=== PATIENT | female | born 1935 | race Caucasian/White ===

== ENCOUNTER 2024-05-16 14:02 | Observation (INO) | payer MEDICARE ==
--- NOTE | 2024-05-16 15:13 | ED ---
General Adult HPI - General Chief complaint: Fall Stated complaint: Fell headache Time Seen by Provider: 05/16/24 14:51 Source: patient, family Mode of arrival: wheelchair Limitations: altered mental status, physical limitation - History of Present Illness Initial comments: This is a pleasant 88-year-old female with no significant medical history presenting with her family today for generalized weakness. They state patient usually lives with them and has a history of dementia though is able to ambulate independently and care for self. Patient had a fall this morning at 5 AM, was heard by her family who came in to find her on the floor. Patient is not thought to have lost consciousness and did hit the back of her head against the edge of a counter. Afterward she was helped to her bedroom and went back to bed. She required assistance with ambulation twice more than this morning which is not normal for her. Then when family came to check on her again she continued still laying in the couch, in her pajamas when she would usually have dressed herself and then ready for the day. Patient has had a frequent cough since last night. Otherwise patient denies any pain. Family does not think she sustained any additional injuries. She is not on blood thinners. No history UTIs. Patient's brurqusq-qn-rip with whom she lives, was sick with a respiratory infection over the last week that they think may have been influenza. - Related Data Previous Rx's Medication Instructions Recorded Cefuroxime [Ceftin] 250 mg PO BID 3 Days #6 tab 05/17/24 Famotidine [Pepcid] 20 mg PO DAILY #7 tablet 05/17/24 Oseltamivir [Tamiflu] 30 mg PO Q12HR 3 Days #6 cap 05/17/24 Allergies Allergy/AdvReac Type Severity Reaction Status Date / Time No Known Allergies Allergy Verified 05/16/24 15:46 Review of Systems ROS Statement: Those systems with pertinent positive or pertinent negative responses have been documented in the HPI. ROS Other: All systems not noted in ROS Statement are negative. Past Medical History Additional Past Medical History / Comment(s): patient poor historian History of Any Multi-Drug Resistant Organisms: None Reported Past Psychological History: No Psychological Hx Reported Smoking Status: Never smoker Past Alcohol Use History: None Reported Past Drug Use History: None Reported - Past Family History Father Family Medical History: Unable to Obtain General Exam - General Exam Comments Initial Comments: PE: CONSTITUTIONAL: No apparent distress, chronically ill-appearing, nontoxic SKIN: Warm, dry, no jaundice, hives or petechiae, no visualized bruises or hematomas EYES: Pupils are equally round, extraocular movements intact without nystagmus, clear conjunctiva, non-icteric sclera HENT: Normocephalic, small palpable hematoma to the left CROS moist mucus membranes, oropharynx clear without exudates NECK: , Full range of motion, normal appearance, no midline spinal tenderness palpation, patient ranges her neck through full range of motion without midline pain or radiculopathy PULMONARY: Clear to auscultation without wheezes, rhonchi, or rales, normal excursion, no accessory muscle use and no stridor CARDIOVASCULAR: Regular rate, rhythm, normal S1 and S2. No appreciated murmurs, rubs or gallops. Strong radial pulses with intact distal perfusion. No lower extremity edema GASTROINTESTINAL: Soft, active bowel sounds throughout, non-tender, non- distended, no palpable masses, no rebound or guarding. No hepatosplenomegaly GENITOURINARY: MUSCULOSKELETAL: Extremities have no gross deformity, no edema, redness, or swelling. No calf swelling. Nontender to palpation throughout. NEUROLOGIC:_a/o x 1, GCS 14, normal mentation and speech. 3-5 strength in all 4 extremities otherwise moves all extremities x 4 without motor or sensory deficit PSYCHIATRIC:_normal mood and affect, thought process is pleasantly confused Limitations: altered mental status, physical limitation Course Vital Signs 05/16/24 05/16/24 05/16/24 14:07 16:19 18:34 Temperature 98.7 F 100.9 F H 99.1 F Pulse Rate 101 H 92 85 Pulse Rate [ Pulse Oximetery ] Respiratory 19 18 16 Rate Blood Pressure 152/80 150/96 134/78 Blood Pressure [Right Arm] O2 Sat by Pulse 93 L 97 96 Oximetry 05/16/24 05/16/24 20:00 21:03 Temperature 98.3 F 98.0 F Pulse Rate Pulse Rate [ 89 93 Pulse Oximetery ] Respiratory 16 17 Rate Blood Pressure Blood Pressure 112/65 134/68 [Right Arm] O2 Sat by Pulse 96 Oximetry - Reevaluation(s) Reevaluation #1: I was alerted by RN that patient does have a fever, temp 100.9 degrees. The patient was tachycardic on arrival and with fever meet SIRS criteria. With patient's increased coughing suspect respiratory source. Blood culture, lactic ordered. Rocephin azithromycin ordered. Tylenol. 05/16/24 16:26 Reevaluation #2: 05/16/24 16:46 Patient influenza A positive, as she has no other signs of other infection at this time will obtain blood culture however will hold off on antibiotics. EKG Findings - EKG Comments: EKG Findings:: Atrial fibrillation, rate 100 bpm, QT/QTc 320/379, normal axis, no ST elevations or depressions, no STEMI. Repeat EKG shows sinus rhythm with occasional PVCs, rate 85 bpm ND interval 177 ms QT/QTc 370/413 ms, normal axis Medical Decision Making - Medical Decision Making Was pt. sent in by a medical professional or institution (, PA, SLITTER CUT OFF OPERATOR, urgent care, hospital, or care home...) When possible be specific @ -No Did you speak to anyone other than the patient for history (EMS, parent, family, police, friend...)? What history was obtained from this source @ -Spoke with patient's family who assist in providing history-state patient does have a history of dementia however usually is able to ambulate and care for herself Did you review nursing and triage notes (agree or disagree)? Why? @ -I reviewed nursing and triage notes Were old charts reviewed (outside hosp., previous admission, EMS record, old EKG, old radiological studies, urgent care reports/EKG's, care home records)? Report findings @ -Medical records reviewed- no prior records for review Differential Diagnosis (chest pain, altered mental status, abdominal pain women, abdominal pain men, vaginal bleeding, weakness, fever, dyspnea, syncope, headache, dizziness, GI bleed, back pain, seizure, CVA, palpatations, mental health, musculoskeletal)? Differential Weakness: Hypoglycemia, shock, sepsis, hyponatremia, anemia, infection, ID, adverse medicine reaction, stroke this is not meant to be an all-inclusive list. EKG interpreted by me (3pts min.). @ -As above X-rays interpreted by me (1pt min.). @X-ray shows no cardiomegaly or gross consolidations, agree with radiologist rotation CT interpreted by me (1pt min.). @CT brain and C-spine were reviewed by myself, showed no evidence of hemorrhage which, skull fracture, malalignment or fracture on CT C-spine, agree with radiologist interpretation U/S interpreted by me (1pt. min.). @ -None done What testing was considered but not performed or refused? (CT, X-rays, U/S, labs)? Why? @ -None What meds were considered but not given or refused? Why? @ -None Did you discuss the management of the patient with other professionals (professionals i.e. , PA, SLITTER CUT OFF OPERATOR, lab, RT, psych nurse, manager social media, equipment inspector, teacher, navy airspace officer, correctional counselor/case manager)? Give summary @ -No Was smoking cessation discussed for >3mins.? @ -No Was critical care preformed (if so, how long)? @ -No Were there social determinants of health that impacted care today? How? (Homelessness, low income, unemployed, alcoholism, drug addiction, transportation, low edu. Level, literacy, decrease access to med. care, fci, rehab)? @ -No Was there de-escalation of care discussed even if they declined (Discuss DNR or withdrawal of care, Hospice)? @ -No What co-morbidities impacted this encounter? (DM, HTN, Smoking, COPD, CAD, Cancer, CVA, ARF, Chemo, Hep., AIDS, mental health diagnosis, sleep apnea, morbid obesity)? @Dementia Was patient admitted / discharged? Hospital course, mention meds given and route, prescriptions, significant lab abnormalities, going to OR and other pertinent info. @ Admission- This is an 88-year-old female presenting today for generalized weakness, fall, increased coughing. Patient initially seen and assessed in waiting room and given bed shortage in the emergency department, obtained patient's family's permission to obtain history in waiting room. They were a greeable. Exam shows small hematoma to the left posterior occiput, otherwise overall reassuring, generalized weakness, no other signs of injury, no midline spinal tenderness palpation. Discussed with patient's family plan for broad workup, CT brain C-spine, chest x-ray Cepheid testing anticipate admission as patient currently too weak for family to care for at home. They are agreeable plan of care. Patient influenza positive. Patient's fever and tachycardia likely secondary to influenza status s antibiotics and blood cultures were not ordered. Patient's initial EKGs appears to show atrial fibrillation, now that rate is slowed we will repeat. Patient has no history of this. Patient did hit her head with a palpable hematoma this morning so heparinization will be withheld. Case was discussed with Dr. Arciniega, kindly accepts patient for admission. Patient is starting become somewhat anxious so seroquel ordered, family ok'd. Of note EKG was repeated and showed normal sinus rhythm. Undiagnosed new problem with uncertain prognosis? @ -No Drug Therapy requiring intensive monitoring for toxicity (Heparin, Nitro, Insulin, Cardizem)? @ -No Were any procedures done? @ -No Diagnosis/symptom? @ Generalized weakness, influenza Acute, or Chronic, or Acute on Chronic? @ acute Uncomplicated (without systemic symptoms) or Complicated (systemic symptoms)? @ -Complicated Side effects of treatment? @ -No Exacerbation, Progression, or Severe Exacerbation? @ -No Poses a threat to life or bodily function? How? (Chest pain, USA, ID, pneumonia, PE, COPD, DKA, ARF, appy, cholecystitis, CVA, Diverticulitis, Homicidal, Suicidal, threat to staff... and all critical care pts) @ -No - Lab Data Result diagrams: 05/16/24 15:50 05/16/24 15:50 Lab Results 05/16/24 05/16/24 05/16/24 Range/Units 15:50 15:50 15:50 WBC 7.8 (3.8-10.6) k/uL RBC 4.95 (3.80-5.40) m/uL Hgb 13.8 (11.4-16.0) gm/dL Hct 43.0 (34.0-46.0) % MCV 86.9 (80.0-100.0) fL MCH 27.8 (25.0-35.0) pg MCHC 32.0 (31.0-37.0) g/dL RDW 15.5 (11.5-15.5) % Plt Count 316 (150-450) k/uL MPV 7.2 Neutrophils % 77 % Lymphocytes % 13 % Monocytes % 9 % Eosinophils % 1 % Basophils % 0 % Neutrophils # 6.0 (1.3-7.7) k/uL Lymphocytes # 1.0 (1.0-4.8) k/uL Monocytes # 0.7 (0-1.0) k/uL Eosinophils # 0.1 (0-0.7) k/uL Basophils # 0.0 (0-0.2) k/uL PT 11.0 (10.0-12.5) sec INR 1.0 (<1.2) APTT 25.0 (22.0-30.0) sec Sodium (137-145) mmol/L Potassium (3.5-5.1) mmol/L Chloride (98-107) mmol/L Carbon Dioxide (22-30) mmol/L Anion Gap mmol/L BUN (7-17) mg/dL Creatinine (0.52-1.04) mg/dL Est GFR (CKD-EPI)AfAm (>60 ml/min/1.73 sqM) Est GFR (CKD-EPI)NonAf (>60 ml/min/1.73 sqM) Glucose (74-99) mg/dL Calcium (8.4-10.2) mg/dL Ionized Calcium Abbe (4.5-5.3) mg/dL Total Bilirubin (0.2-1.3) mg/dL AST (14-36) U/L ALT (4-34) U/L Alkaline Phosphatase (38-126) U/L Troponin I (0.000-0.034) ng/mL NT-Pro-B Natriuret Pep pg/mL Total Protein (6.3-8.2) g/dL Albumin (3.5-5.0) g/dL TSH (0.465-4.680) mIU/L Urine Color Urine Appearance (Clear) Urine pH (5.0-8.0) Ur Specific [place] (1.001-1.035) Urine Protein (Negative) Urine Glucose (UA) (Negative) Urine Ketones (Negative) Urine Blood (Negative) Urine Nitrite (Negative) Urine Bilirubin (Negative) Urine Urobilinogen (<2.0) mg/dL Ur Leukocyte Esterase (Negative) Urine RBC (0-5) /hpf Urine WBC (0-5) /hpf Ur Squamous Epith Cells (0-4) /hpf Urine Bacteria (None) /hpf Hyaline Casts (0-2) /lpf Urine Mucus (None) /hpf Influenza Type A (PCR) Detected A (Not Detectd) Influenza Type B (PCR) Not Detected (Not Detectd) RSV (PCR) Not Detected (Not Detectd) SARS-CoV-2 (PCR) Not Detected (Not Detectd) 05/16/24 05/16/24 05/16/24 Range/Units 15:50 15:50 17:19 WBC (3.8-10.6) k/uL RBC (3.80-5.40) m/uL Hgb (11.4-16.0) gm/dL Hct (34.0-46.0) % MCV (80.0-100.0) fL MCH (25.0-35.0) pg MCHC (31.0-37.0) g/dL RDW (11.5-15.5) % Plt Count (150-450) k/uL MPV Neutrophils % % Lymphocytes % % Monocytes % % Eosinophils % % Basophils % % Neutrophils # (1.3-7.7) k/uL Lymphocytes # (1.0-4.8) k/uL Monocytes # (0-1.0) k/uL Eosinophils # (0-0.7) k/uL Basophils # (0-0.2) k/uL PT (10.0-12.5) sec INR (<1.2) APTT (22.0-30.0) sec Sodium 133 L (137-145) mmol/L Potassium 3.9 (3.5-5.1) mmol/L Chloride 98 (98-107) mmol/L Carbon Dioxide 24 (22-30) mmol/L Anion Gap 11 mmol/L BUN 15 (7-17) mg/dL Creatinine 0.69 (0.52-1.04) mg/dL Est GFR (CKD-EPI)AfAm >90 (>60 ml/min/1.73 sqM) Est GFR (CKD-EPI)NonAf 79 (>60 ml/min/1.73 sqM) Glucose 105 H (74-99) mg/dL Calcium 9.4 (8.4-10.2) mg/dL Ionized Calcium Abbe 4.8 (4.5-5.3) mg/dL Total Bilirubin 0.8 (0.2-1.3) mg/dL AST 27 (14-36) U/L ALT 11 (4-34) U/L Alkaline Phosphatase 88 (38-126) U/L Troponin I <0.012 (0.000-0.034) ng/mL NT-Pro-B Natriuret Pep 1940 pg/mL Total Protein 7.5 (6.3-8.2) g/dL Albumin 4.4 (3.5-5.0) g/dL TSH 2.790 (0.465-4.680) mIU/L Urine Color Light Yellow Urine Appearance Cloudy H (Clear) Urine pH 5.5 (5.0-8.0) Ur Specific [place] 1.016 (1.001-1.035) Urine Protein 1+ H (Negative) Urine Glucose (UA) Negative (Negative) Urine Ketones 1+ H (Negative) Urine Blood Small H (Negative) Urine Nitrite Positive H (Negative) Urine Bilirubin Negative (Negative) Urine Urobilinogen <2.0 (<2.0) mg/dL Ur Leukocyte Esterase Large H (Negative) Urine RBC 5 (0-5) /hpf Urine WBC >182 H (0-5) /hpf Ur Squamous Epith Cells 1 (0-4) /hpf Urine Bacteria Occasional H (None) /hpf Hyaline Casts 1 (0-2) /lpf Urine Mucus Rare H (None) /hpf Influenza Type A (PCR) (Not Detectd) Influenza Type B (PCR) (Not Detectd) RSV (PCR) (Not Detectd) SARS-CoV-2 (PCR) (Not Detectd) Disposition Clinical Impression: Generalized weakness, Influenza, Fall Disposition: ADMITTED IP TO THIS HOSP Condition: Stable
[2024-05-16 16:02] LABS: Basophils % (A) 0 %; Eosinophils # (A) 0.1 k/uL (0-0.7); Eosinophils % (A) 1 %; HGB 13.8 gm/dL (11.4-16.0); Lymphocytes % (A) 13 %; MCH 27.8 pg (25.0-35.0); MCV 86.9 fL (80.0-100.0); Mean Platelet Volume 7.2; Monocytes # (A) 0.7 k/uL (0-1.0); Monocytes % (A) 9 %; Neutrophils % (A) 77 %; Platelet Count 316 k/uL (150-450); RBC 4.95 m/uL (3.80-5.40); RDW 15.5 % (11.5-15.5); WBC 7.8 k/uL (3.8-10.6)
[2024-05-16] MEDS: SODIUM CHLORIDE 0.9% 500 ML 500 ML IV STA (16:02)
[2024-05-16 16:21] LABS: ALT 11 U/L (4-34); AST 27 U/L (14-36); African American GFR (CKD) >90 (>60 ml/min/1.73 sqM); Albumin 4.4 g/dL (3.5-5.0); Alkaline Phosphatase 88 U/L (38-126); Anion Gap 11 mmol/L; Blood Urea Nitrogen 15 mg/dL (7-17); Calcium 9.4 mg/dL (8.4-10.2); Carbon Dioxide 24 mmol/L (22-30); Chloride 98 mmol/L (98-107); Glucose 105 mg/dL (74-99); Non-African American GFR(CKD) 79 (>60 ml/min/1.73 sqM); Potassium 3.9 mmol/L (3.5-5.1); Sodium 133 mmol/L (137-145); Total Bilirubin 0.8 mg/dL (0.2-1.3); Total Protein 7.5 g/dL (6.3-8.2)
[2024-05-16 16:30] LABS: NT-Pro-B-Type Natriuretic Pept 1940 pg/mL
[2024-05-16 16:35] LABS: Influenza A Detected (Not Detectd); Influenza B Not Detected (Not Detectd); Ionized Calcium 4.8 mg/dL (4.5-5.3); RSV Not Detected (Not Detectd)
--- NOTE | 2024-05-16 16:42 | XR ---
EXAMINATION TYPE: XR chest 2V DATE OF EXAM: 05/16/2024 4:35 PM COMPARISON: None. CLINICAL INDICATION: Female, 88 years old with history of Weakness, cough, TECHNIQUE: Frontal and lateral views of the chest are obtained. FINDINGS: There is some chronic parenchymal change bilaterally felt present without suspicious focal air space opacity or pneumothorax seen. A small to tiny right pleural effusion is present. The card iac silhouette size is upper limits of normal. Scoliosis area is noted. IMPRESSION: No acute pulmonary infiltrate. [facility], , 05/16/2024 4:40 PM
[2024-05-16] MEDS: AZITHROMYCIN 500 MG in SODIUM CHLORIDE 0.9% 250 ML IVPB STA (16:47)
[2024-05-16] MEDS: cefTRIAXone IN SWFI 1,000 MG/10 ML SYRINGE IVP STA (16:48)
[2024-05-16] MEDS: ACETAMINOPHEN TAB 500 MG TAB PO STA (16:48)
[2024-05-16 17:30] LABS: Appearance,Urine Cloudy (Clear); Bacteria,Urine Occasional /hpf; Bilirubin,Urine Negative (Negative); Blood,Urine Small (Negative); Color,Urine Light Yellow; Glucose,Urine (UA) Negative (Negative); Hyaline Casts,Urine 1 /lpf (0-2); Ketones,Urine 1+ (Negative); Leukocyte Esterase,Urine Large (Negative); Mucus,Urine Rare /hpf; Nitrite,Urine Positive (Negative); PH, Urine 5.5 (5.0-8.0); Protein,Urine 1+ (Negative); RBC,Urine 5 /hpf (0-5); Specific Gravity,Urine 1.016 (1.001-1.035); Squamous Epithelial Cell,Urine 1 /hpf (0-4); Urobilinogen,Urine <2.0 mg/dL (<2.0); WBC,Urine >182 /hpf (0-5)
[2024-05-16] MEDS ORDERED: ALPRAZolam 0.25 MG TAB PO PRN (18:07)
[2024-05-16] MEDS ORDERED: IBUPROFEN 400 MG TAB PO PRN (18:07)
[2024-05-16] MEDS ORDERED: NALOXONE 0.4 MG/ML 1 ML VIAL IV PRN (18:07)
[2024-05-16] MEDS ORDERED: bisacodyL 5 MG TABLET.DR PO PRN (18:07)
--- NOTE | 2024-05-16 18:12 | CT ---
EXAMINATION TYPE: CT brain drea plasencia DATE OF EXAM: 05/16/2024 COMPARISON: NONE HISTORY: Fall backwards, hematoma 2 left post occiput and neck pain. CT DLP: 1183.3 mGycm. Automated Exposure Control for Dose Reduction was Utilized. TECHNIQUE: CT scan of the head and cervical spine are performed without contrast. FINDINGS: There is no acute intracranial hemorrhage or midline shift identified. Mild to moderate v entricular and sulcal prominence is seen. Goot-fv-hbmzlszu low-attenuation throughout the deep and pe riventricular white matter is present. The calvarium is intact. The globes are intact and the visuali zed sinuses are clear. Cervical spine is visualized in its entirety from C1 through upper thoracic levels and demonstrates g rade 1 retrolisthesis C4 on C5 and C5 on C6 without evidence of acute fracture or dislocation. Preve rtebral soft tissue appears within normal limits. The C1-C2 articulation is within normal limits on the coronal images. Vertebral body heights are preserved. Eqxnhpzi-om-fzazoh disc space narrowing an d spurring C4-C5 through the C6-C7 levels is seen. Axial images show multilevel uncovertebral facet d egenerative changes bilaterally. There are small thyroid gland. Upper lungs show wtst-ol-enyszwho ple ural/parenchymal scarring without pneumothorax. IMPRESSION: 1. There is no acute fracture or dislocation evident in the cervical spine. 2. No acute intracranial hemorrhage or midline shift is seen. [facility], , 05/16/2024 6:10 PM
[2024-05-16] MEDS: QUEtiapine 50 MG TAB PO STA (18:28)
[2024-05-16] MEDS: SODIUM CHLORIDE 0.9% 1,000 ML IV SCH (18:29)
[2024-05-16] MEDS: OSELTAMIVIR 30 MG CAP PO SCH (20:36)
[2024-05-16] MEDS ORDERED: ACETAMINOPHEN TAB 325 MG TAB PO PRN (22:00)
[2024-05-17 04:32] VITALS: RESP 16
[2024-05-17] MEDS ORDERED: ONDANSETRON 4 MG/2 ML VIAL IVP PRN (10:06)
[2024-05-17 13:52] VITALS: BMI 14.6
--- NOTE | 2024-05-17 14:20 | P.HPIM ---
History of Present Illness H&P Date: 05/17/24 This is an 88-year-old female medical history significant for patient comes in with her feeling for generalized weakness. Patient does live with family has a medical history for dementia usually is independent and able to care for herself. Patient had a fall around 5 AM yesterday morning family found her on the floor. Patient states that she did hit her head on the edge of the counter although denied any loss of consciousness. Patient continued to have significant weakness and requiring assistance with ambulation. Patient does have a cough and family has been sick for the last week. Initial blood work reveals an unremarkable CBC sodium level of 133 glucose of 105. Her urinalysis is significantly abnormal and suggestive of a urinary tract infection. Patient does state she is not having any urinary symptoms. Patient's viral panel was positive for influenza A. Chest x-ray reveals no acute pulmonary infiltrate. CT brain and C-spine reveals no acute fracture or dislocation evident in cervical spine there is no acute intracranial hemorrhage or midline shift. EKG reveals normal sinus rhythm with no specific ST or T wave changes heart rate of 85. The ER patient was given a 1 L fluid bolus, patient was started on oral Tamiflu and hydration at 75 mL/h normal saline. She was admitted to the hospital and internal medicine. REVIEW OF SYSTEMS: CONSTITUTIONAL: No fever, no malaise, no fatigue. HEENT: No recent visual problems or hearing problems. Denied any sore throat. CARDIOVASCULAR: No chest pain, orthopnea, PND, no palpitations, no syncope. PULMONARY: No shortness of breath, no cough, no hemoptysis. GASTROINTESTINAL: No diarrhea, no nausea, no vomiting, no abdominal pain. NEUROLOGICAL: No headaches, no weakness, no numbness. HEMATOLOGICAL: Denies any bleeding or petechiae. GENITOURINARY: Denies any burning micturition, frequency, or urgency. MUSCULOSKELETAL/RHEUMATOLOGICAL: Denies any joint pain, swelling, or any muscle pain. ENDOCRINE: Denies any polyuria or polydipsia. The rest of the 14-point review of systems is negative. PHYSICAL EXAMINATION: GENERAL: The patient is alert and oriented x3, not in any acute distress. Well developed, well nourished. HEENT: Pupils are round and equally reacting to light. EOMI. No scleral icterus. No conjunctival pallor. Normocephalic, atraumatic. No pharyngeal erythema. No thyromegaly. CARDIOVASCULAR: S1 and S2 present. No murmurs, rubs, or gallops. PULMONARY: Chest is clear to auscultation, no wheezing or crackles. ABDOMEN: Soft, nontender, nondistended, normoactive bowel sounds. No palpable organomegaly. MUSCULOSKELETAL: No joint swelling or deformity. EXTREMITIES: No cyanosis, clubbing, or pedal edema. NEUROLOGICAL: Gross neurological examination did not reveal any focal deficits. SKIN: No rashes. Assessment and plan Acute influenza A infection without sepsis present on admission Abnormal urine concerning for acute urinary tract infection Hyponatremic hypovolemia History of dementia Generalized weakness and frequent falls secondary to viral illness GI prophylaxis DVT prophylaxis No code Plan PT/OT has evaluated the patient and recommending DC home Patient is not reporting any shortness of breath, she is on room air and lungs are clear She is not having any dysuria, but because of the weakness and family reports of pt not acting as herself, has been started on IV ceftriaxone. Urine culture pending Patient has been started on normal saline Contine tamiflu twice daily and supportive care. The impression and plan of care has been dictated by Nurse Claudia Pra ctitioner as directed. Dr. Randi MD I have performed a history and physical examination and medical decision making of this patient, discussed the same with the dictator, and agree with the dictat ors assessment and plan as written, documented as a scribe. Based on total visit time, I have performed more than 50% of this visit. Past Medical History Past Medical History: Unable to Obtain Additional Past Medical History / Comment(s): patient poor historian History of Any Multi-Drug Resistant Organisms: None Reported Past Surgical History: Unable to Obtain Past Psychological History: Unable to Obtain Smoking Status: Unknown if ever smoked Past Alcohol Use History: None Reported Past Drug Use History: None Reported - Past Family History Father Family Medical History: Unable to Obtain Medications and Allergies Home Medications Medication Instructions Recorded Confirmed Type No Known Home Medications 05/16/24 05/16/24 History Allergies Allergy/AdvReac Type Severity Reaction Status Date / Time No Known Allergies Allergy Verified 05/16/24 15:46 Physical Exam Vitals: Vital Signs Temp Pulse Pulse Resp BP BP BP 05/17/24 08:00 99.6 F 101 H 16 144/76 05/17/24 03:50 98.5 F 88 16 121/67 05/16/24 21:03 98.0 F 93 17 134/68 05/16/24 20:00 98.3 F 89 16 112/65 05/16/24 18:34 99.1 F 85 16 134/78 05/16/24 16:19 100.9 F H 92 18 150/96 05/16/24 14:07 98.7 F 101 H 19 152/80 Pulse Ox 05/17/24 08:00 95 05/17/24 03:50 97 05/16/24 21:03 96 05/16/24 20:00 05/16/24 18:34 96 05/16/24 16:19 97 05/16/24 14:07 93 L Intake and Output 05/16/24 05/17/24 05/17/24 22:59 06:59 14:59 Intake Total 118 Balance 118 Intake: Oral 118 Other: Voiding Method Toilet # Voids 2 Weight 36.287 kg Results CBC & Chem 7: 05/16/24 15:50 05/16/24 15:50 Labs: Abnormal Lab Results - Last 24 Hours (Table) 05/16/24 05/16/24 05/16/24 Range/Units 15:50 15:50 17:19 Sodium 133 L (137-145) mmol/L Glucose 105 H (74-99) mg/dL Urine Appearance Cloudy H (Clear) Urine Protein 1+ H (Negative) Urine Ketones 1+ H (Negative) Urine Blood Small H (Negative) Urine Nitrite Positive H (Negative) Ur Leukocyte Esterase Large H (Negative) Urine WBC >182 H (0-5) /hpf Urine Bacteria Occasional H (None) /hpf Urine Mucus Rare H (None) /hpf Influenza Type A (PCR) Detected A (Not Detectd) Thrombosis Risk Factor Assmnt - Choose All That Apply Any of the Below Risk Factors Present?: No Other Risk Factors: Yes Each Risk Factor Represents 3 Points: Age 75 years or older Other congenital or acquired thrombophilia - If yes, enter type in comment: No Thrombosis Risk Factor Assessment Total Risk Factor Score: 3 Thrombosis Risk Factor Assessment Level: Moderate Risk Assessment and Plan Time with Patient: Less than 30
[2024-05-17 15:21] VITALS: BP 134/63; PULSE 99; TEMP 98.8
[2024-05-17] MEDS ORDERED: HEPARIN SODIUM,PORCINE 5,000 UNIT/ML 1 ML VIAL SQ SCH (21:00)
--- NOTE | 2024-05-20 21:10 | P.DS ---
Providers Date of admission: 05/16/24 18:08 Attending physician: Roman Arciniega MD Primary care physician: Stated None Hospital Course: Final Diagnosis Acute influenza A infection without sepsis present on admission Abnormal urine concerning for acute urinary tract infection Hyponatremic hypovolemia History of dementia Generalized weakness and frequent falls secondary to viral illness Discharge Disposition Patient is stable for discharge home. Patient is on room air and has been afebrile. Patient to complete course of antibiotics with 3 days of oral ceftin twice daily on discharge. Patient to continue course of oral tamiflu for 3 more days. Follow up with PCP on discharge. Hospital Course This is an 88-year-old female medical history significant for patient comes in with her feeling for generalized weakness. Patient does live with family has a medical history for dementia usually is independent and able to care for herself. Patient had a fall around 5 AM yesterday morning family found her on the floor. Patient states that she did hit her head on the edge of the counter although denied any loss of consciousness. Patient continued to have significant weakness and requiring assistance with ambulation. Patient does have a cough and family has been sick for the last week. Initial blood work reveals an unremarkable CBC sodium level of 133 glucose of 105. Her urinalysis is significantly abnormal and suggestive of a urinary tract infection. Patient does state she is not having any urinary symptoms. Patient's viral panel was positive for influenza A. Chest x-ray reveals no acute pulmonary infiltrate. CT brain and C-spine reveals no acute fracture or dislocation evident in cervical spine there is no acute intracranial hemorrhage or midline shift. EKG reveals normal sinus rhythm with no specific ST or T wave changes heart rate of 85. The ER patient was given a 1 L fluid bolus, patient was started on oral Tamiflu and hydration at 75 mL/h normal saline. She was admitted to the hospital and internal medicine. Clinically patient improved, currently resting in bed has no reports of shortness of breath, chest pain, nausea vomiting or diarrhea. Denies cough. She wants to discharge home. Physical therapy saw the patient and recommended return home on discharge. Urine culture comes back showing E.Coli with sensitivity to recephin and patient was given IV ceftriaxone in the hospital and discharged with 3 more days of oral ceftin twice daily. Please see medication reconciliation for a list of current medications. Thank you for allowing us to participate in the care of this patient. The impression and plan of care has been dictated by Radha Galan Nurse Practitioner as directed. Dr. Randi MD I have performed a history and physical examination and medical decision making of this patient, discussed the same with the dictator, and agree with the dictators assessment and plan as written, documented as a scribe. Based on total visit time, I have performed more than 50% of this visit. Patient Condition at Discharge: Stable Plan - Discharge Summary New Discharge Prescriptions: New Cefuroxime [Ceftin] 250 mg PO BID 3 Days #6 tab Famotidine [Pepcid] 20 mg PO DAILY #7 tablet Oseltamivir [Tamiflu] 30 mg PO Q12HR 3 Days #6 cap Discharge Medication List Cefuroxime [Ceftin] 250 mg PO BID 3 Days #6 tab 05/17/24 [Rx] Famotidine [Pepcid] 20 mg PO DAILY #7 tablet 05/17/24 [Rx] Oseltamivir [Tamiflu] 30 mg PO Q12HR 3 Days #6 cap 05/17/24 [Rx] Follow up Appointment(s)/Referral(s): [facility] Care, [NON-STAFF] - As Needed None,Stated [Primary Care Provider] - 1-2 days Patient Instructions/Handouts: Influenza (DC) Activity/Diet/Wound Care/Special Instructions: In Home Services [facility] provides various in-home supportive services; helping seniors to maintain an independent lifestyle. Eligibility for services are determined through a phone screening and in-person assessment; seniors must be 60 years of age or older and a resident of [facility]. [phone] Personal Care Services: Personal Care services include in-home assistance with activities of daily living (ADL) for an individual; including bathing, dressing, grooming, toileting, transferring, eating and moving about. Homemaking Services: Homemaking services consist of general household activities such as washing dishes, vacuuming, dusting, sweeping, laundry, grocery shopping, changing bed linens, and cleaning bathroom or kitchen surfaces. Respite Services: Respite care provides caregivers with the opportunity to take a break from the demands of caring for persons with mental or physical disabilities. Program aides supervise and assist participants with activities of daily living while the caregiver attends to errands or just enjoys a recreational break. Chore Services: The home chore program provides basic home maintenance services to seniors who, because of fraility or disability, are unable to perform these tasks or do not have family who are able to assist in these tasks. Home chores may include but are not limited to weatherization (caulking windows, installing weather stripping), safety measures (replacing light bulbs, installing smoke detectors, installing handrails and grab bars), clearing walkways of snow and ice, trimming overhead tree branches, cutting grass, leaf raking, etc. Care Management & Case Coordination Services [facility] offers Care Management and Case Coordination services. Both programs include a comprehensive assessment to determine the level of care and evaluate service needs. [phone] Care Management [facility] Care Management Services include a comprehensive assessment and development of a subsequent care plan for clients who have multiple needs and are at a high risk of [place] [facility] placement. Case Coordination [facility] Case Coordination Services offers participants an assessment to determine areas in need of support and provide access to various In-Home Services and other community resources. [facility] operates two [facility] Tuesday - Tuesday 8:00 a.m. to 4:30 p.m. [facility] [address] [place] [address] Congregate Lunch is served daily at 11:30 a.m. New Weekly Activities for [facility] [address] [place] [address] Congregate Lunch is served daily at 11:45 a.m. [facility] - not sure if she would qualify [facility] When a person is providing care 24-hours a day to a loved one, it does not leave much time to run errands or to do some of the special things that interest the care provider. It also makes holding a job almost impossible for some care pro viders. [facility] is an alternative for individuals in these types of situations. [facility] is available Tuesday through Tuesday, 8:30 a.m. to 4:30 p.m. to provide supervised activities, companionship, exercise, and mental stimulation for seniors who cannot be home alone due to stroke, dementia, or other medical conditions. Clients schedules are based on family need. Cost share is based on income level. Transportation and personal care services are available. Clients arrive each day at [facility] and are greeted by a cheerful staff who will attend to their needs throughout the day. There are activities for the seniors to participate in, as well as quiet areas to relax. The seniors are made to feel that [facility] is their home away from home, and they are encouraged to participate in the seasonal decorating and daily activities. For more information, please contact Cj Virk: [email or web address] Find additional local resources for Dementia and Alzheimers Disease in [facility] through the Dementia and [employer] of [facility]. Discharge/Stand Alone Forms: Who Do I Call?, Community Resources, Area PCPs Discharge Disposition: HOME SELF-CARE
== END 2024-05-17 15:56 | disposition home or self-care (01) ==
LOC: EC 14:02 → 4SSUR 18:08 → EDBD 18:08 → 6NMEDSUR 19:50
PROVIDERS: ADMIT Internal Medicine; ATTEND Internal Medicine
DX: J10.1 Influenza due to other identified influenza virus with other respiratory manifestations (principal); F03.90 Unspecified dementia, unspecified severity, without behavioral disturbance, psychotic disturbance, mood disturbance, and anxiety; W19.XXXA Unspecified fall, initial encounter; E86.1 Hypovolemia; E87.1 Hypo-osmolality and hyponatremia; R82.90 Unspecified abnormal findings in urine
CPT/HCPCS: 96361 ×3; 96365; 99285; 36415; 93005; 97161; 97165; 83880; 80053; 84443; 82330; 84484; 85025; 85610; 85730; 81001; 87086; 87077; 87186; 87636; 71046; 72125; 70450; G0378 ×2; J0696